=== PATIENT | male | born 1950 | race Caucasian/White ===

== ENCOUNTER 2021-12-01 12:07 | Emergency (ER) | payer OTHER ==
[2021-12-01 12:26] VITALS: RESP 18; BMI 20.5
[2021-12-01 14:03] LABS: EOS % 7.5 % (0-4.5); HEMATOCRIT 25.8 % (35.4-49); HEMOGLOBIN 8.9 GM/dL (11.7-16.9); LYMPH % 27.3 % (8-40); MCH 29.6 pg (25.7-33.7); MCHC 34.5 g/dl (32.0-35.9); MEAN CELL VOLUME 85.9 fl (80-96); MEAN PLT VOLUME 7.3 fl (7.5-11.1); MONO % 11.5 % (3.8-10.2); NEUT % 52.7 % (42.8-82.8); PLATELET COUNT 178 10^3/uL (134-434); RDW 15.1 % (11.9-15.9); WHITE BLOOD COUNT 7.8 K/mm3 (4.0-10.0)
[2021-12-01 14:32] LABS: ALBUMIN 3.1 g/dl (3.4-5.0); CALCIUM 8.1 mg/dL (8.5-10.1)
[2021-12-01 14:33] LABS: BLOOD UREA NITROGEN 45.2 mg/dL (7-18)
[2021-12-01 14:36] LABS: CREATININE 2.4 mg/dL (0.55-1.3)
[2021-12-01 14:37] LABS: BILIRUBIN,TOTAL 0.2 mg/dL (0.2-1)
[2021-12-01 16:03] VITALS: BP 145/60; PULSE 60; TEMP 98
== END 2021-12-01 16:58 | disposition home or self-care (01) ==
LOC: JER 12:07
DX: L03.114 Cellulitis of left upper limb (principal)
CPT/HCPCS: 36415; 80053; 85025; 99283-25